=== PATIENT | female | born 1985 | race Hispanic/Latino ===

== ENCOUNTER 2018-06-05 19:30 | Emergency (ER) | payer OTHER ==
[2018-06-05 19:46] VITALS: BP 122/73; PULSE 81; RESP 18; TEMP 98.6; O2SAT 99
--- NOTE | 2018-06-05 20:20 | ED PDOC ---
HPI: Skin/Bite Injury Chief Complaint (Provider): Abnormal Skin Integrity History Per: Patient History/Exam Limitations: no limitations Onset/Duration Of Symptoms: Hrs ([employer]) Current Symptoms Are (Timing): Still Present Additional Complaint(s): 32 year old female presents to the ED for evaluation of a laceration sustained prior to arrival. Patient reports she bent down to pet her dog. When she stood up, she hit her head on the corner of a cabinet and sustained a 1cm laceration on her scalp. Vaccinations UTD. PMD: none <Lucy Camacho - Last Filed: 06/05/18 20:36> <Lien Cade - Last Filed: 06/06/18 16:08> Time Seen by Provider: 06/05/18 19:44 Chief Complaint (Nursing): Abnormal Skin Integrity Past Medical History Reviewed: Historical Data, Nursing Documentation, Vital Signs Vital Signs: Last Vital Signs Temp 98.6 F 06/05/18 19:44 Pulse 81 06/05/18 19:44 Resp 18 06/05/18 19:44 BP 122/73 06/05/18 19:44 Pulse Ox 99 06/05/18 19:44 - Medical History PMH: No Chronic Diseases - Surgical History Surgical History: No Surg Hx - Family History Family History: States: Unknown Family Hx - Social History Current smoker - smoking cessation education provided: No Alcohol: Social Drugs: Denies <Lucy Camacho - Last Filed: 06/05/18 20:36> Vital Signs: Last Vital Signs Temp 98.6 F 06/05/18 19:44 Pulse 81 06/05/18 19:44 Resp 18 06/05/18 19:44 BP 122/73 06/05/18 19:44 Pulse Ox 99 06/05/18 20:45 <Lien Cade - Last Filed: 06/06/18 16:08> - Allergies Allergies/Adverse Reactions: Allergies Allergy/AdvReac Type Severity Reaction Status Date / Time Penicillins Allergy RASH Verified 06/05/18 19:44 Review of Systems ROS Statement: Except As Marked, All Systems Reviewed And Found Negative Skin: Positive for: Other (Laceration on scalp) <Lucy Camacho - Last Filed: 06/05/18 20:36> Physical Exam - Reviewed Nursing Documentation Reviewed: Yes Vital Signs Reviewed: Yes - Physical Exam Appears: Positive for: Non-toxic, No Acute Distress Head Exam: Positive for: ATRAUMATIC, NORMOCEPHALIC Skin: Positive for: Normal Color, Warm, Dry Eye Exam: Positive for: Normal appearance Neck: Positive for: Normal, Painless ROM Cardiovascular/Chest: Positive for: Regular Rate, Rhythm. Negative for: Murmur Respiratory: Positive for: Normal Breath Sounds. Negative for: Wheezing, Respiratory Distress Extremity: Positive for: Normal ROM Neurologic/Psych: Positive for: Alert, Oriented. Negative for: Motor/Sensory De ficits Comments: 1cm superficial abrasion, 1mm open in posterior right scalp. No active bleeding. <Lucy Camacho Last Filed: 06/05/18 20:36> - ECG O2 Sat by Pulse Oximetry: 99 (RA) Pulse Ox Interpretation: Normal <Lucy Camacho - Filed: 06/05/18 20:36> Medical Decision Making Medical Decision Making: Initial Impression: Laceration Initial Plan: Irrigated wound with normal saline --- Scribe Attestation: Documented by Richard Toledo acting as a scribe for Lucy MORENO. Provider Scribe Attestation: All medical record entries made by the Scribe were at my direction and personally dictated by me. I have reviewed the chart and agree that the record accurately reflects my personal performance of the history, physical exam, medical decision making, and the department course for this patient. I have also personally directed, reviewed, and agree with the discharge instructions and disposition. <Lucy Camacho Last Filed: 06/05/18 20:36> Disposition - Disposition Disposition: Routine/Home Disposition Time: 20:07 <Lucy Camacho Last Filed: 06/05/18 20:36> <Lien Cade - Last Filed: 06/06/18 16:08> - Clinical Impression Clinical Impression: Head injury, Scalp abrasion - Disposition Condition: GOOD Instructions: Head Injury Observation (DC) Forms: [facility] (Sudanese), [facility] ED School/Work Excuse - PA / PERSONAL CHEF / Resident Statement MD/DO has reviewed & agrees with the documentation as recorded. <Lien Cade - Last Filed: 06/06/18 16:08>
== END 2018-06-05 20:35 | disposition home or self-care (01) ==
LOC: H.ER 19:30
DX: S00.01XA Abrasion of scalp, initial encounter (principal); W22.8XXA Striking against or struck by other objects, initial encounter; Y92.89 Other specified places as the place of occurrence of the external cause; Z88.0 Allergy status to penicillin